=== PATIENT | male | born 1995 | race African-American/Black ===

== ENCOUNTER 2018-04-12 17:50 | Emergency (ER) | payer OTHER ==
[2018-04-12 18:05] VITALS: BP 127/55; PULSE 72; BMI 27.0
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
== END 2018-04-12 19:43 | disposition home or self-care (01) ==
LOC: JERFT 17:50
DX: S62.646A Nondisplaced fracture of proximal phalanx of right little finger, initial encounter for closed fracture (principal); Y04.2XXA Assault by strike against or bumped into by another person, initial encounter; Y93.89 Activity, other specified; Y92.118 Other place in children's home and orphanage as the place of occurrence of the external cause; Y99.8 Other external cause status
CPT/HCPCS: 73110-TC-RT-FY; 73130-TC-RT-FY; 99281-25